=== PATIENT | female | born 1925 | race Caucasian/White ===

== ENCOUNTER 2016-05-27 11:18 | Inpatient (IN) | payer MEDICARE, OTHER ==
[2016-05-27] MEDS: Acetaminophen/oxyCODONE 325-5 MG Tab PO PRN ×2 (12:46→19:27)
[2016-05-27] MEDS ORDERED: Dextrose 5%-0.45% NaCl 500 ML IV SCH (13:15)
[2016-05-27] MEDS ORDERED: Aluminum Hydroxide/Magnesium Hydroxide/Simethicone Susp 30 ML Cup PO PRN (13:33)
[2016-05-27] MEDS ORDERED: Acetaminophen/oxyCODONE 325-5 MG Tab PO PRN (13:33)
[2016-05-27] MEDS ORDERED: Magnesium Hydroxide 400 MG/5 ML Susp 30 ML Cup PO PRN (13:33)
[2016-05-27] MEDS ORDERED: ALPRAZolam 0.25 MG Tab PO PRN (13:33)
[2016-05-27] MEDS: Pantoprazole 40 MG Vial IVPUSH SCH (13:35)
[2016-05-27] MEDS: Ketorolac 30 MG/ML SDV IVPUSH PRN (13:49)
[2016-05-27] MEDS ORDERED: Celecoxib 100 MG Cap PO SCH (14:00)
[2016-05-27] MEDS: Albuterol/Ipratropium 3.0-0.5 MG/3 ML Neb Soln NEB SCH ×2 (14:21→21:01)
[2016-05-27] MEDS: Lidocaine 5% 700 MG Patch TOP SCH (15:01)
[2016-05-27] MEDS: Acetaminophen 500 MG Tab PO SCH ×2 (15:01→22:31)
[2016-05-27] MEDS: Pregabalin 25 MG Cap PO SCH ×2 (15:02→22:31)
[2016-05-27] MEDS: Cyclobenzaprine 10 MG Tab PO PRN (15:02)
[2016-05-27] MEDS: Budesonide 0.5 MG/2 ML Neb Susp NEB SCH ×2 (16:06→21:00)
[2016-05-27] MEDS: Methylphenidate 5 MG Tab PO SCH (16:16)
[2016-05-27] MEDS: Losartan 25 MG Tab PO SCH (16:16)
[2016-05-27] MEDS: Nicotine 7 MG/24 Hr Patch TRDERM SCH (16:17)
[2016-05-27] MEDS: Levofloxacin/Dextrose 5%-Water 100 ML IV SCH (16:27)
[2016-05-27] MEDS: Levofloxacin/Dextrose 5%-Water 50 ML IV SCH (18:00)
[2016-05-27] MEDS: Calcium Citrate/Vitamin D3 315 MG-250 Unit Tab PO SCH (18:02)
[2016-05-27] MEDS: Escitalopram 10 MG Tab PO SCH (22:31)
[2016-05-27] MEDS: Dextrose 5%-0.45% NaCl 1,000 ML IV SCH (22:54)
[2016-05-28] MEDS: Albuterol/Ipratropium 3.0-0.5 MG/3 ML Neb Soln NEB SCH ×3 (05:51→20:35)
[2016-05-28] MEDS: Ketorolac 30 MG/ML SDV IVPUSH PRN ×3 (06:02→23:39)
[2016-05-28] MEDS: Pantoprazole 40 MG Vial IVPUSH SCH (06:07)
[2016-05-28] MEDS: Budesonide 0.5 MG/2 ML Neb Susp NEB SCH ×2 (07:18→20:23)
[2016-05-28 08:12] LABS: CHLORIDE,CL 109 mmol/L (98-115); SODIUM,NA 142 mmol/L (136-145)
[2016-05-28] MEDS: Lidocaine 5% 700 MG Patch TOP SCH (09:10)
[2016-05-28] MEDS: Nicotine 7 MG/24 Hr Patch TRDERM SCH (09:10)
[2016-05-28] MEDS: Dextrose 5%-0.45% NaCl 1,000 ML IV SCH ×2 (09:19→21:30)
[2016-05-28] MEDS ORDERED: Potassium Chloride 100 ML IV ONE ×3 (09:30→14:00)
[2016-05-28] MEDS: Losartan 25 MG Tab PO SCH (09:32)
[2016-05-28] MEDS: Pregabalin 25 MG Cap PO SCH ×3 (09:32→20:34)
[2016-05-28] MEDS: Calcium Citrate/Vitamin D3 315 MG-250 Unit Tab PO SCH ×2 (09:32→18:09)
[2016-05-28] MEDS: Acetaminophen 500 MG Tab PO SCH ×3 (09:33→20:25)
[2016-05-28] MEDS: Methylphenidate 5 MG Tab PO SCH (09:33)
[2016-05-28] MEDS: Acetaminophen/oxyCODONE 325-5 MG Tab PO PRN ×2 (10:10→18:04)
--- NOTE | 2016-05-28 11:42 | PN ---
05/28/2016 PATIENT NAME: DARSHAN GREGORIO CHIEF COMPLAINT: Overall does feel better, however, does still complain of some dysphagia and some difficulty swallowing. Nurses are stating she is not wanting to take her pills. BRIEF HISTORY: This 89-year-old female, who I saw at the clinic few days ago for some esophageal dysphagia and whom I set up for endoscopy; however, the patient did return and saw Annie Shepherd, another provider at the [facility] due to again some problems swallowing and also some dehydration. She has been saying that she has been having some difficulty swallowing for several months, it kind of had worsened over the past few days, to which the patient will only take a sip of water or a smaller bout of food. I did put her on twice- daily PPI, had her stop her Fosamax and her aspirin, and a soft diet. She still complained of sensation of something is getting stuck in her throat. She does have a history of COPD and GERD. We were scheduled to perform an endoscopy this morning; however, potassium is low at 3.1, needing replacement. The patient had been recently hospitalized for bacterial bronchitis and atelectasis. She did spend quite a bit of time in acute care and then swing bed therapy for ongoing pulmonary atelectasis, we thought at one time time was a possible lobular and hyperemia; however, she did improve and she had ran a course of antibiotics, and we did do aggressive pulmonary toileting and she did improve significantly and so, she was discharged to the retirement on the 20 of May with oral Levaquin. CT of the lungs does show too small left lung base pulmonary nodules. At one time, had question metastatic. She is a current smoker; however, she has been institutionalized for quite a few weeks now, so she has not smoked. She does take a nicotine patch. She did tell me last week, when she saw me, that her weight had been stable. LABORATORY DATA: Sodium 142, potassium low at 3.1, we replaced that right now. BUN 10, creatinine 0.64. Urinalysis, rare bacteria, otherwise unremarkable. Calcium low at 7.8, however, her calcium did correct with albumin yesterday at [facility]. Chest x-ray at [facility] demonstrated chronic scarring in the right perihilar region and right lung base, however, no pneumothorax, no focal consolidation, some mild atelectasis noted at the left lung base. White count at [facility] yesterday; WBC 6.7, hemoglobin 11.8, and hematocrit 36.1. PHYSICAL EXAMINATION: VITAL SIGNS: Temperature 98.2, heart rate 72, blood pressure 149/85, O2 sats 94%. She is on 2 L nasal cannula. GENERAL: The patient is alert and oriented. LUNGS: Diminished sounds bilaterally lower bases, however, clear upper bases. CV: Regular rate and rhythm. IMPRESSION AND PLAN: 1. Dysphagia, esophageal phase. The patient will need upper an endoscopy. Plan on doing that today as long as we can correct her potassium level. Right now, we will keep her n.p.o. 2. Hypokalemia. Potassium currently 3.1, currently administering IV potassium. 3. Recent acute bronchitis, atelectasis. Atelectasis still showed up on chest x-ray, however minimal. She completed her course of Levaquin and antibiotics. No infectious process noted. She did complete aggressive chest physical therapy. Continue her on her pulmonary medications. 4. Pulmonary nodularity, left lung base. She does have a pulmonary outpatient consultation placed. 5. Heart failure with preserved ejection fraction around 55 with left ventricular hypertrophy with mild diastolic dysfunction. She had an adequate mean arterial pressure right now. 6. Hypertension. She is on angiotensin-receptor ramon. Blood pressure is good. 7. History of depression. She has been on Lexapro. This seems to have improved overall. 8. History of chronic corticosteroid therapy. This was discontinued recently on last admission. 9. Chronic pain with history of spinal compression fracture T12 with chronic hip pain, fairly well controlled. 10.Gastrointestinal stress prophylaxis. She is on proton pump inhibitor therapy for gastroesophageal reflux disease. OVERALL PLAN: Today continue with n.p.o. Continue replacing potassium. Hopefully, we can get her upper endoscopy scheduled this afternoon or late evening by Dr. Dasilva. /[id number]/MODL
[2016-05-28] MEDS ORDERED: Albuterol 0.083% 2.5 MG/3 ML Neb Soln NEB ONE (16:30)
[2016-05-28] MEDS ORDERED: Midazolam 1 MG/ML 2 ML SDV ONE (16:32)
[2016-05-28] MEDS ORDERED: fentaNYL 100 MCG/2 ML SDV ONE (16:32)
[2016-05-28] MEDS ORDERED: Lactated Ringers 1,000 ML IV ONE (16:40)
[2016-05-28] MEDS ORDERED: Ketamine 500 mg/10 ML MDV IV ONE (16:44)
[2016-05-28] MEDS ORDERED: EPINEPHrine 1:10,000 1 MG/10 ML Syringe ONE (16:45)
[2016-05-28] MEDS ORDERED: Ketamine 500 mg/10 ML MDV ONE (16:48)
[2016-05-28] MEDS ORDERED: Lactated Ringers 1,000 ML ONE (16:49)
--- NOTE | 2016-05-28 17:26 | PCM.PRGIU ---
Upper GI Endoscopy Procedure Performed by:: Osvaldo Morton Date of Service:: 05/28/16 Informed consent obtained?: Yes Sedation:: Reports: IV Depth reached:: Reports: Duodenum Landmarks:: Reports: GE Junction, Gastric Folds, Pyloric Opening, Duodenal Folds , Light Source Landmarks comments:: normal landmarks - Findings Esophagus:: Reports: Other Esophagus comments:: This patient has a superficial ulceration present at the mid esophagus. there were at least 3 or 4 superficial ulcerations measuring 1-2 cm. No bleeding noted. No varicose veins noted. Small hiatal hernia noted. No evidence of GERD. Stomach comments:: slight inflammation at the pyloric opening. Hiatal hernia comments:: small hiatal hernia noted without any complication. Duodenum:: Reports: Normal - Interventions Cauterization:: Reports: None Foreign body removal:: Reports: None Polypectomy:: Reports: None Polyps (cm):: 0 Complications:: Reports: None
[2016-05-28] MEDS: Nystatin Susp 100,000 Unit/ML 5 ML UD Cup PO SCH (20:29)
[2016-05-28] MEDS: Cyclobenzaprine 10 MG Tab PO PRN (20:29)
[2016-05-28] MEDS: Escitalopram 10 MG Tab PO SCH (20:34)
[2016-05-29] MEDS: Acetaminophen/oxyCODONE 325-5 MG Tab PO PRN ×4 (00:29→22:53)
[2016-05-29] MEDS: Albuterol/Ipratropium 3.0-0.5 MG/3 ML Neb Soln NEB SCH ×3 (05:34→20:41)
[2016-05-29] MEDS: Pantoprazole 40 MG Vial IVPUSH SCH (06:12)
[2016-05-29] MEDS: Budesonide 0.5 MG/2 ML Neb Susp NEB SCH ×2 (07:13→19:55)
[2016-05-29] MEDS: Dextrose 5%-0.45% NaCl 1,000 ML IV SCH ×2 (07:42→19:52)
[2016-05-29] MEDS: Nicotine 7 MG/24 Hr Patch TRDERM SCH (08:48)
[2016-05-29] MEDS: Calcium Citrate/Vitamin D3 315 MG-250 Unit Tab PO SCH ×2 (08:49→18:31)
[2016-05-29] MEDS: Losartan 25 MG Tab PO SCH (08:51)
[2016-05-29] MEDS: Acetaminophen 500 MG Tab PO SCH ×3 (08:52→20:46)
[2016-05-29] MEDS: Methylphenidate 5 MG Tab PO SCH (08:55)
[2016-05-29] MEDS: Pregabalin 25 MG Cap PO SCH ×3 (08:55→20:45)
[2016-05-29] MEDS: Nystatin Susp 100,000 Unit/ML 5 ML UD Cup PO SCH ×4 (08:57→20:45)
[2016-05-29] MEDS: Lidocaine 5% 700 MG Patch TOP SCH (08:59)
--- NOTE | 2016-05-29 10:13 | PN ---
05/29/2016 PATIENT NAME: DARSHAN GREGORIO CHIEF COMPLAINT: She feels much better. She is eating this morning. Now, she came into the hospital with dysphagia, esophageal phase, upper endoscopy yesterday performed by Dr. Dasilva demonstrated esophageal ulceration. HISTORY: This patient who I saw at [facility] and she was subsequently seen by Annie Shepherd due to some esophageal dysphagia, she was having some problems swallowing, somewhat intermittent. She had been on aspirin. She has also been on Fosamax. She stated that her symptoms worsened over the past few days and which she currently takes sips of water, small amount of food. She does have a history of COPD and GERD. Again, yesterday's endoscopy did show ulceration. She was placed on PPI therapy. She had spent quite a long time in the hospital here with recent bacterial bronchitis and atelectasis, and also she was in swing bed. She does have quite severe COPD, however, this appears to be very stabilized. She was subsequently transferred to a long term where she is doing very well. She hopes to at one day get out of the long term. LABORATORY DATA: Sodium 142, potassium 3.9. BUN 10 and creatinine 0.64. Urinalysis was unremarkable. PHYSICAL EXAMINATION: GENERAL: The patient is alert and oriented. LUNGS: Diminished bilaterally, however clear in the upper bases. CV: Regular rate and rhythm. GI: Bowels are hypotonic. IMPRESSION AND PLAN: 1. Dysphagia, esophageal phase due to esophageal ulcerations. She is on proton pump inhibitor therapy. We will avoid all antibiotics right now. We will avoid potassium, oral. Continue stopping her Fosamax. 2. Hypokalemia. This has resolved. 3. Recent acute bronchitis with atelectasis, still demonstrated on chest x- ray, however, minimal. She has completed her course of Levaquin antibiotics. There is no infectious process. We will hold all antibiotics right now. 4. Pulmonary nodularity, left lung base. She does have a pulmonary consultation as an outpatient. She is doing much improved with this heart failure. 5. Heart failure with preserved ejection fraction. Ejection fraction approximately 55% with left ventricular hypertrophy and mild diastolic dysfunction. 6. Hypertension. She is on angiotensin-receptor ramon. Blood pressure is adequate. 7. History of depression. Lexapro max dose. She seems to be responding to this and she had good affect. OVERALL PLAN: Today, we will continue hospitalization for one more day. She most likely will be sent back tomorrow. We will see how she does with her swallowing, and she can advance her diet slowly today. /[id number]/MODL
[2016-05-29] MEDS: Levofloxacin/Dextrose 5%-Water 100 ML IV SCH (15:36)
[2016-05-29] MEDS: Levofloxacin/Dextrose 5%-Water 50 ML IV SCH (17:03)
[2016-05-29] MEDS: Cyclobenzaprine 10 MG Tab PO PRN (20:05)
[2016-05-29] MEDS: Escitalopram 10 MG Tab PO SCH (20:45)
[2016-05-30] MEDS: Albuterol/Ipratropium 3.0-0.5 MG/3 ML Neb Soln NEB SCH (05:48)
[2016-05-30] MEDS: Dextrose 5%-0.45% NaCl 1,000 ML IV SCH (05:59)
[2016-05-30] MEDS: Pantoprazole 40 MG Vial IVPUSH SCH (06:00)
[2016-05-30 06:35] VITALS: BP 130/74
[2016-05-30] MEDS: Nicotine 7 MG/24 Hr Patch TRDERM SCH (08:05)
[2016-05-30] MEDS: Losartan 25 MG Tab PO SCH (08:07)
[2016-05-30] MEDS: Lidocaine 5% 700 MG Patch TOP SCH (08:07)
[2016-05-30] MEDS: Methylphenidate 5 MG Tab PO SCH (08:08)
[2016-05-30] MEDS: Nystatin Susp 100,000 Unit/ML 5 ML UD Cup PO SCH (08:09)
[2016-05-30] MEDS: Calcium Citrate/Vitamin D3 315 MG-250 Unit Tab PO SCH (08:11)
[2016-05-30] MEDS: Acetaminophen 500 MG Tab PO SCH (08:12)
[2016-05-30] MEDS: Pregabalin 25 MG Cap PO SCH (08:14)
[2016-05-30] MEDS: Budesonide 0.5 MG/2 ML Neb Susp NEB SCH (08:27)
[2016-05-30] MEDS: Acetaminophen/oxyCODONE 325-5 MG Tab PO PRN (09:31)
--- NOTE | 2016-05-30 13:19 | DISCH ---
FINAL DIAGNOSES: 1. Esophageal ulcerations along with oropharyngeal dysphagia. 2. Hypokalemia resolved. 3. Recent acute bronchitis with atelectasis, much improved. 4. Pulmonary nodularity, left lung base. She has a pulmonary consultation as outpatient scheduled. 5. Heart failure with preserved ejection fraction approximately 55% with left ventricular hypertrophy and mild diastolic dysfunction. 6. Hypertension. She is on ARB. 7. History of depression. She is on Lexapro, she has done very well. 8. Osteoporosis. Discontinued Fosamax due to esophageal ulceration. BRIEF HISTORY: This patient whom I have seen at the [facility] for oropharyngeal dysphagia and we had scheduled her for an endoscopy. However, she did return back to the clinic and was admitted for ongoing pain and ongoing esophageal dysphagia. While in the hospital, we did perform an upper endoscopy, which showed that she had multiple small superficial ulcerations in her esophagus around mid area. No evidence of GERD with a small hiatal hernia. She was placed on Protonix while in the hospital. However, she was on PPI therapy twice a day. HOSPITAL COURSE: It went well, quite uneventful. She seemed to improve probably 75% regarding her ability to eat and swallow. She was doing quite well. We did place her on PPI. We stopped antibiotics, stopped potassium. I did stop her Fosamax prior to admission. COMPLICATIONS: No real complications, although we did have to replace her potassium. This is now corrected. VITAL SIGNS: On discharge, temperature 97.6, heart rate 76, O2 sats 94% on 2 L, blood pressure 130/74. LABS: Potassium now 3.9, sodium 142, BUN 10, creatinine 0.64, calcium 7.8. MEDICATION ADJUSTMENTS/ADDITIONS: Discontinue Fosamax. Holding all antibiotics. Placed on omeprazole b.i.d. DISPOSITION: The patient will be discharged from observation back to long-term care. She will continue with her physical therapy. She is doing quite well. She has made significant improvement of her respiratory status. Recommended soft diet. Avoid meat and chicken or any foods that bother her for the next five days. Important to continue with PPI therapy. Report any worsening esophageal pain or inability to swallow or any weight loss. She can be seen next week with [facility] provider. MEDICAL DECISION MAKIN minutes were spent on the discharge planning and process. /[id number]/MODL MTDD
== END 2016-05-30 11:42 | DRG 381 ==
LOC: KA.MS 11:50
PROVIDERS: ADMIT Nurse Practitioner Family; ATTEND Nurse Practitioner Family
PROC: 0DJ08ZZ Inspection of Upper Intestinal Tract, Via Natural or Artificial Opening Endoscopic (ICD-10-PCS; principal; 2016-05-28)
DX: K22.10 Ulcer of esophagus without bleeding (principal); J98.11 Atelectasis; I50.32 Chronic diastolic (congestive) heart failure; R13.12 Dysphagia, oropharyngeal phase; E87.6 Hypokalemia; J20.9 Acute bronchitis, unspecified; R91.1 Solitary pulmonary nodule; I10 Essential (primary) hypertension; F32.9 Major depressive disorder, single episode, unspecified; M81.0 Age-related osteoporosis without current pathological fracture; F17.200 Nicotine dependence, unspecified, uncomplicated; J44.9 Chronic obstructive pulmonary disease, unspecified; K21.9 Gastro-esophageal reflux disease without esophagitis; Z88.8 Allergy status to other drugs, medicaments and biological substances; Z79.899 Other long term (current) drug therapy; K44.9 Diaphragmatic hernia without obstruction or gangrene
CPT/HCPCS: 00740; 36415; 80048; 81001; 84132; 93005; 94640; A9270-GY; C9113; J1885; J1956; J2250; J3480; J7042; J7120; J7620-GY

== ENCOUNTER 2016-06-29 18:08 | Emergency (ER) | payer MEDICARE, OTHER ==
--- NOTE | 2016-06-29 18:52 | EDM.PDOC ---
ED HPI LOWER BACK PAIN/INJURY - General Chief Complaint: Back Pain or Injury Stated Complaint: WEAKNESS Time Seen by Provider: 06/29/16 18:23 Source of Information: Reports: Patient History Limitations: Reports: No limitations - History of Present Illness INITIAL COMMENTS - FREE TEXT/NARRATIVE: PT STATES SHE HAS CHRONIC BACK PAIN. WAS WALKING WITH PT AT HOME YESTERDAY WHILE USING WALKER AND MAY HAVE OVER DID IT. PAIN BEGAN DURING NIGHT AND PAIN MEDICINE IS NOT WORKING. DENIES FALL, REINJURY, CP, SOB, ABD PAIN, N/V/D, DYSURIA, OR BLOODY STOOL. WAS IN NURSING FACILITY UP TO 2 WEEKS AGO BUT NO LIVES HOME ALONE. Timing/Duration: Reports: Waxing/waning Location: Reports: lower Quality: Reports: Ache Severity: moderate Improves with: Reports: Medication Worsens with: Reports: Movement Context: Reports: other (excessive walking yesterday) Associated Symptoms: Reports: Denies symptoms, Difficulty walking. Denies: Chest pain, Shortness of breath - Related Data Allergies/ADRs: Allergies Allergy/AdvReac Type Severity Reaction Status Date / Time buspirone HCl [From BuSpar] Allergy Mild Other Verified 06/29/16 18:55 diclofenac sodium Allergy Other Verified 06/29/16 18:55 [From Voltaren] gabapentin Allergy Other Verified 06/29/16 18:55 tramadol Allergy Other Verified 06/29/16 18:55 Home Meds: Home Meds Escitalopram [Lexapro] 15 mg PO BEDTIME 10/21/14 [History] ALPRAZolam [Xanax] 0.25 mg PO BID PRN #30 tablet 05/20/16 [Rx] Acetaminophen [Tylenol Extra Strength] 500 mg PO TID #90 tablet 05/20/16 [Rx] Albuterol/Ipratropium [DuoNeb 3.0-0.5 MG/3 ML] 3 ml NEB Q8H #90 vial 05/20/16 [ Rx] Budesonide [Pulmicort] 0.5 mg NEB BIDRT #60 neb 05/20/16 [Rx] Calcium Carbonate/Vitamin D3 [Calcium 600 + Vit D 400 Softgl] 1 tab PO BID #60 capsule 05/20/16 [Rx] Celecoxib [CeleBREX] 200 mg PO DAILY #60 cap 05/20/16 [Rx] Cyclobenzaprine [Flexeril] 10 mg PO TID PRN #60 tablet 05/20/16 [Rx] Docusate Sodium/Sennosides [Senna Plus] 1 tab PO BID #60 tablet 05/20/16 [Rx] Losartan [Cozaar] 25 mg PO DAILY #30 tablet 05/20/16 [Rx] Mag Hydrox/Al Hydrox/Simeth [Antacid Liquid] 15 ml PO Q6H PRN #1 oral.susp 05/20 [Rx] Magnesium Hydroxide [Milk of Magnesia] 30 ml PO DAILY PRN #10 cup 05/20/16 [Rx] Methylphenidate [Ritalin] 5 mg PO DAILY #30 tablet 05/20/16 [Rx] Pregabalin [Lyrica] 50 mg PO TID #90 cap 05/20/16 [Rx] Acetaminophen/oxyCODONE [Percocet 325-5 MG] 1 tab PO Q6H PRN 05/27/16 [History] Omeprazole 20 mg PO BID@0700,1600 05/27/16 [History] Nicotine [Habitrol] 14 mg TRDERM DAILY 06/29/16 [History] Ondansetron [Ondansetron] 4 mg PO Q8H PRN 06/29/16 [History] Past Medical History - Past Health History Medical/Surgical History: Denies Medical/Surgical History HEENT History: Reports: Cataract, Hard of hearing, Impaired vision Cardiovascular History: Reports: Heart murmur, Hypertension Respiratory History: Reports: COPD, Other (see below) Other Respiratory History: smokes 3 per day Gastrointestinal History: Reports: Hemorrhoids Genitourinary History: Reports: UTI, recurrent Musculoskeletal History: Reports: Arthritis, Back pain, chronic, Fracture, Osteoarthritis, Osteoporosis Psychiatric History: Reports: Depression Endocrine/Metabolic History: Reports: Vitamin D deficiency Hematologic History: Reports: Blood transfusion(s) Oncologic (Cancer) History: Reports: Breast Dermatologic History: Reports: Other (see below) Other Dermatologic History: dark discoloration on the legs, bruises easily, on prednisone - Infectious Disease History Infectious Disease History: Reports: Chicken pox, Measles - Past Surgical History HEENT Surgical History: Reports: Cataract surgery, Tonsillectomy GI Surgical History: Reports: Colonoscopy, Other (see below) Other GI Surgeries/Procedures: hemorroidectomy Female Surgical History: Reports: Hysterectomy, Mastectomy Neurological Surgical History: Reports: C-Spine, Lumbar spine, Thoracic spine Musculoskeletal Surgical History: Reports: Hip replacement, Joint replacement, Shoulder surgery Oncologic Surgical History: Reports: Mastectomy Social & Family History - Family History Family Medical History: Noncontributory HEENT: Reports: None Cardiac: Reports: None Respiratory: Reports: None GI: Reports: None : Reports: None OBGYN: Reports: None Musculoskeletal: Reports: None Neurological: Reports: None Psychiatric: Reports: None Endocrine/Metabolic: Reports: None Hematologic: Reports: None Immunologic: Reports: None Dermatologic: Reports: None Oncologic: Reports: Other (see below) Other Oncologic Family History: / - Tobacco Use Smoking Status *Q: Former Smoker Years of Tobacco use: 30 Packs/Tins Daily: 0.5 Used Tobacco, but Quit: Yes Month Tobacco Last Used: apr 2016 Second Hand Smoke Exposure: No - Caffeine Use Caffeine Use: Reports: Coffee - Alcohol Use Days Per Week of Alcohol Use: 0 - Recreational Drug Use Recreational Drug Use: No - Living Situation & Occupation Living situation: Reports: ED ROS GENERAL - Review of Systems Review Of Systems: ROS reveals no pertinent complaints other than HPI. Constitutional: Reports: weakness HEENT: Reports: No symptoms Respiratory: Reports: No Symptoms Cardiovascular: Reports: No symptoms Endocrine: Reports: no symptoms GI/Abdominal: Reports: No symptoms : Reports: no symptoms Musculoskeletal: Reports: back pain Skin: Reports: no symptoms Neurological: Reports: No Symptoms Psychiatric: Reports: No symptoms Hematologic/Lymphatic: Reports: no symptoms Immunologic: Reports: no symptoms ED EXAM,LOWER BACK PAIN/INJURY - Physical Exam Exam: See Below Exam Limited By: No limitations General Appearance: alert, WD/WN, no apparent distress Throat/Mouth: Normal inspection, Normal oropharynx, No airway compromise Head: atraumatic, normocephalic Neck: normal inspection, supple, non-tender Respiratory/Chest: no respiratory distress, lungs clear, normal breath sounds, no accessory muscle use, chest non-tender Cardiovascular: regular rate, rhythm, diastolic murmur GI/Abdominal: normal bowel sounds, soft, non tender, no organomegaly, no distention, no abnormal bruit, no mass Back Exam: decreased range of motion, paraspinal tenderness. No: CVA tenderness (L), CVA tenderness (R), vertebral tenderness Extremities: normal inspection, non-tender, no pedal edema Neurological: alert, normal dorsiflexion, normal plantar flexion, oriented x 3, straight leg raise (L) (WITHOUT PAIN), straight leg raise (R) (WITHOUT PAIN). No: saddle anesthesia Psychiatric: anxious Skin Exam: Warm, Dry, Intact, Normal color, No rash Lymphatic: no adenopathy Course - Orders/Labs/Meds Orders: Active Orders 24 hr Category Date Time Status URINALYSIS W/MICROSCOPIC [UA W/MICROSCOPIC] [URIN] Stat Lab 06/29/16 18:46 Uncollected - Re-Assessments/Exams Free Text/Narrative Re-Assessment/Exam: 06/29/16 19:56 PT AFEBRILE, NONTOXIC APPEARING, VSS, RESTING COMFORTABLY. WILL D/C AND F/U WITH [facility] SCHEDULED ON FRIDAY Departure - Departure Time of Disposition: 19:59 Disposition: Home, Self-Care 01 Condition: good Clinical Impression: Chronic low back pain Qualifiers: Back pain laterality: unspecified Sciatica presence: with sciatica Sciatica laterality: bilateral sciatica Qualified Code(s): M54.41 - Lumbago with sciatica , right side; M54.42 - Lumbago with sciatica, left side; G89.29 - Other chronic pain Instructions: Back Pain, Adult, [id number], Chronic Back Pain, Pain Medicine Instructions, [id number] Additional Instructions: FOLLOW UP AT [facility] ON FRIDAY SCHEDULED - My Orders Last 24 Hours: My Active Orders 06/29/16 18:46 URINALYSIS W/MICROSCOPIC [UA W/MICROSCOPIC] [URIN] Stat - Assessment/Plan Last 24 Hours: My Active Orders 06/29/16 18:46 URINALYSIS W/MICROSCOPIC [UA W/MICROSCOPIC] [URIN] Stat Assessment:: CHRONIC BACK PAIN Plan: APPOINTMENT ON FRIDAY AT [facility]
[2016-06-29 18:53] VITALS: BP 118/77
[2016-06-29] MEDS ORDERED: Ketorolac 30 MG/ML SDV IM ONE (19:43)
== END 2016-06-29 20:10 | disposition home or self-care (01) ==
LOC: KA.ED 18:08
DX: M54.41 Lumbago with sciatica, right side (principal); M54.42 Lumbago with sciatica, left side; G89.29 Other chronic pain; R01.1 Cardiac murmur, unspecified; I10 Essential (primary) hypertension; J44.9 Chronic obstructive pulmonary disease, unspecified; Z87.440 Personal history of urinary (tract) infections; M19.90 Unspecified osteoarthritis, unspecified site; F32.9 Major depressive disorder, single episode, unspecified; Z98.49 Cataract extraction status, unspecified eye; Z98.890 Other specified postprocedural states; Z90.710 Acquired absence of both cervix and uterus; Z87.891 Personal history of nicotine dependence; Z79.899 Other long term (current) drug therapy; Z88.5 Allergy status to narcotic agent; Z88.8 Allergy status to other drugs, medicaments and biological substances
CPT/HCPCS: 81001; 96372; 99283; J1885

== ENCOUNTER 2016-07-01 14:25 | Inpatient (IN) | payer MEDICARE, OTHER ==
[2016-07-01] MEDS ORDERED: Sodium Chloride 0.9% 5 ML Syringe FLUSH PRN (15:01)
[2016-07-01] MEDS ORDERED: Sodium Chloride 0.9% 1,000 ML IV ONE (15:01)
[2016-07-01 15:21] LABS: CHLORIDE,CL 106 mmol/L (98-115); SODIUM,NA 140 mmol/L (136-145)
--- NOTE | 2016-07-01 16:11 | EDM.PDOC ---
ED HPI GENERAL MEDICAL PROBLEM - General Chief Complaint: General Time Seen by Provider: 07/01/16 14:58 Source of Information: Reports: Patient, EMS History Limitations: Reports: No limitations - History of Present Illness INITIAL COMMENTS - FREE TEXT/NARRATIVE: PT STATES SHE HAS FELT WEAK OVER PAST FEW DAYS AND FELL WHILE IN KITCHEN. LANDED ON BUTTOCKS AND BACK HURTS. SEEN HERE IN ER ON 06/29/16 FOR BACK PAIN. TAKES EXCESSIVE PERCOCET AND FLEXERIL. DENIES HEAD INJURY, FEVER, N/V/D, CP, OR SOB. Onset: today Duration: Day(s): Location: Reports: back Quality: Reports: Ache Severity: mild Improves with: Reports: None Worsens with: Reports: Movement Associated Symptoms: Reports: weakness. Denies: chest pain, cough, fever/chills , nausea/vomiting, shortness of breath Treatments [employer]: Reports: Oxygen, Splint(s) Lower Back Pain Score (Numeric/FACES): 7 - Related Data Allergies Allergy/AdvReac Type Severity Reaction Status Date / Time buspirone HCl [From BuSpar] Allergy Mild Other Verified 07/01/16 15:03 diclofenac sodium Allergy Other Verified 07/01/16 15:03 [From Voltaren] gabapentin Allergy Other Verified 07/01/16 15:03 tramadol Allergy Other Verified 07/01/16 15:03 Home Meds: Home Meds ALPRAZolam [Xanax] 0.25 mg PO BID PRN #30 tablet 05/20/16 [Rx] Budesonide [Pulmicort] 0.5 mg NEB BIDRT #60 neb 05/20/16 [Rx] Celecoxib [CeleBREX] 200 mg PO DAILY #60 cap 05/20/16 [Rx] Cyclobenzaprine [Flexeril] 10 mg PO TID PRN #60 tablet 05/20/16 [Rx] Docusate Sodium/Sennosides [Senna Plus] 1 tab PO BID #60 tablet 05/20/16 [Rx] Losartan [Cozaar] 25 mg PO DAILY #30 tablet 05/20/16 [Rx] Mag Hydrox/Al Hydrox/Simeth [Antacid Liquid] 15 ml PO Q6H PRN #1 oral.susp 05/20 [Rx] Magnesium Hydroxide [Milk of Magnesia] 30 ml PO DAILY PRN #10 cup 05/20/16 [Rx] Methylphenidate [Ritalin] 5 mg PO DAILY #30 tablet 05/20/16 [Rx] Pregabalin [Lyrica] 50 mg PO TID #90 cap 05/20/16 [Rx] Acetaminophen/oxyCODONE [Percocet 325-5 MG] 1 tab PO Q6H PRN 05/27/16 [History] Omeprazole 20 mg PO DAILY 05/27/16 [History] Nicotine [Habitrol] 14 mg TRDERM DAILY 06/29/16 [History] Acetaminophen [Tylenol Extra Strength] 500 mg PO TID PRN 07/01/16 [History] Albuterol/Ipratropium [DuoNeb 3.0-0.5 MG/3 ML] 3 ml NEB Q8H PRN 07/01/16 [ History] Calcium Carb/Vitamin D3/Vit K1 [Viactiv Soft Chew] 1 tab PO BID 07/01/16 [ History] Escitalopram [Lexapro] 20 mg PO BEDTIME 07/01/16 [History] Past Medical History - Past Health History Medical/Surgical History: Denies Medical/Surgical History HEENT History: Reports: Cataract, Hard of hearing, Impaired vision Cardiovascular History: Reports: Heart murmur, Hypertension Respiratory History: Reports: COPD Other Respiratory History: smokes 3 per day Gastrointestinal History: Reports: Hemorrhoids Genitourinary History: Reports: UTI, recurrent Musculoskeletal History: Reports: Arthritis, Back pain, chronic, Fracture, Osteoarthritis, Osteoporosis Neurological History: Reports: None Psychiatric History: Reports: Anxiety, Depression Endocrine/Metabolic History: Reports: Vitamin D deficiency Hematologic History: Reports: Blood transfusion(s) Oncologic (Cancer) History: Reports: Breast Dermatologic History: Reports: Other (see below) Other Dermatologic History: dark discoloration on the legs, bruises easily - Infectious Disease History Infectious Disease History: Reports: Chicken pox, Measles, Mumps - Past Surgical History Head Surgeries/Procedures: Reports: None HEENT Surgical History: Reports: Cataract surgery, Tonsillectomy Cardiovascular Surgical History: Reports: None Respiratory Surgical History: Reports: None GI Surgical History: Reports: Colonoscopy, Other (see below) Other GI Surgeries/Procedures: hemorroidectomy Female Surgical History: Reports: Hysterectomy, Mastectomy Endocrine Surgical History: Reports: None Neurological Surgical History: Reports: C-Spine, Lumbar spine, Thoracic spine Musculoskeletal Surgical History: Reports: Hip replacement, Joint replacement, Shoulder surgery Oncologic Surgical History: Reports: Mastectomy Social & Family History - Family History Family Medical History: Noncontributory HEENT: Reports: None Cardiac: Reports: None Respiratory: Reports: None GI: Reports: None : Reports: None OBGYN: Reports: None Musculoskeletal: Reports: None Neurological: Reports: None Psychiatric: Reports: None Endocrine/Metabolic: Reports: None Hematologic: Reports: None Immunologic: Reports: None Dermatologic: Reports: None Oncologic: Reports: Other (see below) Other Oncologic Family History: / - Tobacco Use Smoking Status *Q: Former Smoker Years of Tobacco use: 30 Packs/Tins Daily: 0.5 Used Tobacco, but Quit: Yes Month Tobacco Last Used: apr 2016 Second Hand Smoke Exposure: No - Caffeine Use Caffeine Use: Reports: Coffee - Alcohol Use Days Per Week of Alcohol Use: 0 - Recreational Drug Use Recreational Drug Use: No - Living Situation & Occupation Living situation: Reports: ED ROS GENERAL - Review of Systems Review Of Systems: ROS reveals no pertinent complaints other than HPI. Constitutional: Reports: weakness HEENT: Reports: No symptoms Respiratory: Reports: No Symptoms Cardiovascular: Reports: No symptoms Endocrine: Reports: no symptoms GI/Abdominal: Reports: No symptoms : Reports: no symptoms Musculoskeletal: Reports: back pain Skin: Reports: no symptoms Neurological: Reports: Dizziness Psychiatric: Reports: No symptoms Hematologic/Lymphatic: Reports: no symptoms Immunologic: Reports: no symptoms ED EXAM, GENERAL - Physical Exam Exam: See Below Exam Limited By: No limitations General Appearance: alert, WD/WN, no apparent distress Eye Exam: bilateral eye: normal inspection Ears: normal external exam, normal canal Nose: normal inspection, normal mucosa, no blood Throat/Mouth: Normal inspection, Normal oropharynx, No airway compromise Head: atraumatic, normocephalic Neck: normal inspection, supple, non-tender, full range of motion Respiratory/Chest: no respiratory distress, lungs clear, normal breath sounds, no accessory muscle use, chest non-tender Cardiovascular: regular rate, rhythm, no murmur GI/Abdominal: normal bowel sounds, soft, non tender, no mass Back Exam: paraspinal tenderness (LUMBAR / NO ECCHYMOSIS, ERYTHEMA, OR EDEMA NOTED). No: CVA tenderness (L), CVA tenderness (R) Neurological: alert, oriented, normal cognition Psychiatric: normal affect, normal mood Skin Exam: Warm, Dry, Intact, Normal color, No rash Lymphatic: no adenopathy Course - Vital Signs Last Recorded V/S: Last Vital Signs Temp 97.5 F 07/01/16 14:53 Pulse 72 07/01/16 14:53 Resp 17 07/01/16 14:53 BP 84/36 L 07/01/16 14:53 Pulse Ox 95 07/01/16 14:53 - Orders/Labs/Meds Orders: Active Orders 24 hr Category Date Time Status Peripheral IV Care [RC] . DIRECTED Care 07/01/16 15:01 Ordered Lumbar Spine 2 or 3V [CR] Stat Exams 07/01/16 14:59 Ordered UA W/MICROSCOPIC [URIN] Stat Lab 07/01/16 14:59 Uncollected Sodium Chloride 0.9% [Syrex Flush] Med 07/01/16 15:01 Ordered 5 ml FLUSH Q8HR PRN Peripheral IV Insertion Adult [OM.PC] Routine Oth 07/01/16 15:01 Ordered Medication Orders Sodium Chloride (Syrex Flush) 5 ml FLUSH Q8HR PRN PRN Reason: Keep Vein Open Labs: Laboratory Tests 07/01/16 07/01/16 Range/Units 14:45 14:45 WBC 6.4 (5.0-10.0) 10^3/uL RBC 4.34 (3.80-5.50) 10^6/uL Hgb 11.9 L (12.0-16.0) g/dL Hct 36.7 L (37.0-47.0) % MCV 84.6 (82.0-92.0) fL MCH 27.5 (27.0-31.0) pg MCHC 32.5 (32.0-36.0) g/dL RDW 17.8 H (11.5-14.5) % Plt Count 199 (150-300) 10^3/uL MPV 8.3 (7.4-10.4) fL Neut % (Auto) 61.5 (50.0-70.0) % Lymph % (Auto) 23.5 (20.0-40.0) % [place] % (Auto) 10.0 H (2.0-8.0) % Eos % (Auto) 3.6 H (1.0-3.0) % Baso % (Auto) 1.4 H (0.0-1.0) % Neut # (Auto) 4.0 (2.5-7.0) 10^3/uL Lymph # (Auto) 1.5 (1.0-4.0) 10^3/uL [place] # (Auto) 0.6 (0.1-0.8) 10^3/uL Eos # (Auto) 0.2 (0.1-0.3) 10^3/uL Baso # (Auto) 0.1 (0.0-0.1) 10^3/uL Sodium 140 (136-145) mmol/L Potassium 4.2 (3.3-5.3) mmol/L Chloride 106 (98-115) mmol/L Carbon Dioxide 28.9 (21.0-32.0) mmol/L BUN 32 H (6-25) mg/dL Creatinine 1.50 H (0.51-1.17) mg/dL Est Cr Clr Drug Dosing TNP Estimated GFR (MDRD) 33 mL/min Glucose 96 (70-110) mg/dL Calcium 8.8 (8.7-10.3) mg/dL Total Bilirubin 0.5 (0.2-1.0) mg/dL AST 27 (15-37) U/L ALT 12 (12-78) U/L Alkaline Phosphatase 59 (46-116) IU/L Total Protein 6.0 L (6.4-8.2) g/dL Albumin 2.83 L (3.00-4.80) g/dL Meds: Medications Generic Name Dose Route Start Last Admin Trade Name Freq PRN Reason Stop Dose Admin Sodium Chloride 5 ml 07/01/16 15:01 Syrex Flush FLUSH Q8HR PRN Keep Vein Open Discontinued Medications Generic Name Dose Route Start Last Admin Trade Name Freq PRN Reason Stop Dose Admin Sodium Chloride 1,000 mls @ 999 mls/hr 07/01/16 15:01 07/01/16 15:00 Normal Saline IV 07/01/16 16:01 999 mls/hr .BOLUS ONE Administration - Re-Assessments/Exams Free Text/Narrative Re-Assessment/Exam: 07/01/16 16:17 PT AFEBRILE, NONTOXIC APPEARING, VSS. DISCUSSED CASE WITH DR COLLINS. WILL ADMIT INPATIENT Departure - Departure Time of Disposition: 16:18 Disposition: Admitted As Inpatient 67 Condition: fair Clinical Impression: Chronic bilateral low back pain with left-sided sciatica, Weakness Compression fx, thoracic spine Qualifiers: Encounter type: subsequent encounter Fracture healing: with routine healing Qualified Code(s): S22.000D - Wedge compression fracture of unspecified thoracic vertebra, subsequent encounter for fracture with routine healing Forms: ED Department Discharge - My Orders Last 24 Hours: My Active Orders 07/01/16 14:59 Lumbar Spine 2 or 3V [CR] Stat UA W/MICROSCOPIC [URIN] Stat 07/01/16 15:01 Peripheral IV Care [RC] . DIRECTED Sodium Chloride 0.9% [Syrex Flush] 5 ml FLUSH Q8HR PRN Peripheral IV Insertion Adult [OM.PC] Routine - Assessment/Plan Last 24 Hours: My Active Orders 07/01/16 14:59 Lumbar Spine 2 or 3V [CR] Stat UA W/MICROSCOPIC [URIN] Stat 07/01/16 15:01 Peripheral IV Care [RC] . DIRECTED Sodium Chloride 0.9% [Syrex Flush] 5 ml FLUSH Q8HR PRN Peripheral IV Insertion Adult [OM.PC] Routine Assessment:: WEAKNESS Plan: ADMIT INPATIENT FOR DR COLLINS
[2016-07-01] MEDS ORDERED: Acetaminophen 500 MG Tab PO PRN (17:44)
[2016-07-01] MEDS ORDERED: Aluminum Hydroxide/Magnesium Hydroxide/Simethicone Susp 30 ML Cup PO PRN (17:44)
[2016-07-01] MEDS ORDERED: Magnesium Hydroxide 400 MG/5 ML Susp 30 ML Cup PO PRN (17:44)
[2016-07-01] MEDS ORDERED: Albuterol/Ipratropium 3.0-0.5 MG/3 ML Neb Soln NEB PRN (17:44)
[2016-07-01] MEDS: Acetaminophen/oxyCODONE 325-5 MG Tab PO PRN (20:00)
[2016-07-01] MEDS: Budesonide 0.5 MG/2 ML Neb Susp NEB SCH (20:01)
[2016-07-01] MEDS: Calcium Citrate/Vitamin D3 315 MG-250 Unit Tab PO SCH (20:03)
[2016-07-01] MEDS: Pregabalin 25 MG Cap PO SCH (20:06)
[2016-07-01] MEDS: Escitalopram 10 MG Tab PO SCH (20:06)
[2016-07-02] MEDS: Omeprazole 20 MG Cap.CR PO SCH (06:08)
[2016-07-02] MEDS: Acetaminophen/oxyCODONE 325-5 MG Tab PO PRN ×3 (06:08→22:13)
[2016-07-02] MEDS: Pregabalin 25 MG Cap PO SCH ×3 (08:06→20:06)
[2016-07-02] MEDS: Celecoxib 100 MG Cap PO SCH (08:06)
[2016-07-02] MEDS: Calcium Citrate/Vitamin D3 315 MG-250 Unit Tab PO SCH ×2 (08:07→20:04)
[2016-07-02] MEDS: Methylphenidate 5 MG Tab PO SCH (08:07)
[2016-07-02] MEDS: Nicotine 14 MG/24 Hr Patch TRDERM SCH (08:10)
--- NOTE | 2016-07-02 08:11 | HP ---
07/01/2016PATIENT NAME: DARSHAN GREGORIO HISTORY OF PRESENT ILLNESS: This is a very pleasant 89-year-old patient, who presents to the emergency room because of feeling weak over the last few days. She fell at the kitchen. She landed on her buttocks and her back hurts. She was taking too much excessive Percocet and Flexeril. Denies having any head injury or fever, nausea, vomiting, diarrhea, or shortness of breath. The patient has been taking narcotics for her chronic low back pain. PAST MEDICAL HISTORY: Past history is positive for cataracts, decreased hearing, impaired vision, medical history includes heart murmur and hypertension. Lung history includes COPD. She smokes three cigarettes a day. Gastrointestinal history shows hemorrhoids. system shows that she has recurrent UTIs. Musculoskeletal history showed she has arthritis, back pain, fracture, osteoarthritis, and osteoporosis. She has history of depression, vitamin D deficiency. She reports breast cancer in the past. She has had some bruises of the legs. PAST SURGICAL HISTORY: Cataract surgery, bilaterally tonsillectomy. GI history includes colonoscopy. She has also had a hemorrhoidectomy. history also shows hysterectomy and mastectomy. Possible neurological surgical history includes C-spine, lumbar spine, thoracic spine surgery. She also had a hip replacement and shoulder surgery. She also reports mastectomy. REVIEW OF SYSTEMS: HEAD AND NECK: No complaints except for some slurring of speech. ENT: No complaints. HEART AND LUNGS: No complaints. ABDOMEN: No complaints. EXTREMITIES: No complaints. [employer]MENT: No complaints. MUSCULOSKELETAL: See present history and low back pain. PSYCHIATRIC: Fairly alert. Does have some slurred speech. HEMATOLOGICAL: No complaints. DERMATOLOGICAL: Some bruises of the legs. Tobacco use. The patient is smoking for 30 years. She smokes currently about a half pack a day, sometimes less. PHYSICAL EXAMINATION: GENERAL: Reveals a very pleasant, elderly patient in no immediate distress. She is alert and well oriented to space, time, and person. She was visiting with her two friends in the room. VITAL SIGNS: Reviewed. HEAD: Negative. ENT: Negative. HEART AND LUNGS: Stable. ABDOMEN: Soft. BACK: Reveals some tenderness. Moderate amount of paravertebral muscle spasm. Flexion, extension, lateral flexion movements are tender. Reflexes are normal. EXTREMITIES: Reveals some bruising of the legs. NEUROLOGIC: Intact. Last vital signs: Temperature 97.5, pulse 72, respirations 17, blood pressure initially was 84/36, now it is 110/70, pulse oxygenation is 95%. Hemoglobin is 11.9, which slightly low; white count 6.4; platelet count was 199, normal. Creatinine is 1.5, BUN is 32, otherwise is negative. Total protein slightly low at 6.0, normal 6.4. Albumin 2.83, normal 3. The thoracic x-rays are positive for a questionable wedge compression fracture, exact bone is not known, but awaiting the radiological report. PLAN: 1. Admit to the hospital for further pain control and further evaluation. 2. History of fall. We will have to evaluate this. 3. The patient most likely took too much narcotic medication associated and muscle relaxant including Flexeril. Plan on discharge will be to caution her against excessive use of medications. 4. Pain control. Please see admit note. /[id number]/MODL
[2016-07-02] MEDS: Budesonide 0.5 MG/2 ML Neb Susp NEB SCH ×2 (08:44→19:53)
--- NOTE | 2016-07-02 12:02 | PN ---
07/02/2016 PATIENT NAME: DARSHAN GREGORIO CHIEF COMPLAINT: This morning, feels much better. When pressed, she will say she does have lower lumbar pain, however, much milder. HISTORY: This 89-year-old female, who recently spent quite a bit of time in acute care and then subsequent swing bed care for more pulmonary, respiratory atelectasis and pneumonia, was eventually released back to home. She stated that she became quite weak over the past few days and she fell in her kitchen landing on her buttocks and hurting her back. She does have a history of lumbago and chronic back pain. She is on Flexeril and Percocet. On speaking with her, most likely, she stated she took an extra Flexeril, possibly even an extra Percocet, became weak, and then fell, however, no other injury at that time. The patient was recently discharged from the hospital on 05/30/2016. Final diagnosiswas esophageal ulcerations along with oropharyngeal dysphagia, bronchitis with atelectasis, which had much improved. She did have a pulmonary nodularity in her left lung base, heart failure with preserved ejection fraction around 55%, hypertension, history of depression, osteoporosis, which we discontinued her Fosamax due to esophageal ulceration. She does have COPD. She does smoke three cigarettes a day. She has been counseled on this extensively. Musculoskeletal history, does have a history of lumbago with arthritis, fractures with a possible wedge fracture in her thoracic vertebrae, that report is still pending. Once again, osteoarthritis with osteoporosis, depression, and vitamin D deficiency. PHYSICAL EXAMINATION: VITAL SIGNS: Temperature 97.6, heart rate 76, O2 sats 94%; this is on 2 L nasal cannula. GENERAL: She is alert and oriented. Constitutionally, she has just some mild stiffness; however, she was able to get out of bed. I did stand her up. MUSCULOSKELETAL: She has got good upper extremity strength and good motor function. Her legs are slightly weak in her bilateral lower extremities; however, she was quite steady in her gait. She had no edema. She did have some paraspinal tenderness slightly in her thorax, more in her midline lumbar, axial in nature. LUNGS: Decreased in the lower bases, however, clear to auscultation. CV: Regular rate and rhythm and no murmur noted. REVIEW OF SYSTEMS: She denies any saddle anesthesia or any radiculopathy in her lower extremities. LABORATORY DATA: White count normal, hemoglobin 11.5, hematocrit 34.1. Potassium 3.9, sodium normal. BUN and creatinine normal. Calcium 7.8. Uric acid 3.8. Rare bacteria in her urine. IMPRESSION AND PLAN: 1. Histories of fall at home, likely medication mixup. Pharmacy is working with the patient and she will notify the home health nurse regarding proper medications setup. 2. High-risk medication. Flexeril as listed on the Beers criteria. However, the patient may get more benefit than risk at this time as long as she takes proper dosage. 3. Lower lumbar pain with possible wedge fracture, thoracic; report pending. However, continue with Tylenol Extra Strength. We will change that to scheduled. We will limit her Percocet at this time. Continue with Celebrex. I do not anticipate the patient being in the hospital more than 24 more hours. Anticipate discharge tomorrow. The patient will need quite a bit of education regarding her medications. We will see what the report of her thoracic lumbar says today. /[id number]/MODL
[2016-07-02] MEDS: Escitalopram 10 MG Tab PO SCH (20:04)
[2016-07-03] MEDS: Acetaminophen/oxyCODONE 325-5 MG Tab PO PRN ×2 (05:24→11:24)
[2016-07-03 06:26] VITALS: BP 148/79
[2016-07-03] MEDS: Omeprazole 20 MG Cap.CR PO SCH (06:36)
[2016-07-03] MEDS: Nicotine 14 MG/24 Hr Patch TRDERM SCH (08:32)
[2016-07-03] MEDS: Celecoxib 100 MG Cap PO SCH (08:32)
[2016-07-03] MEDS: Calcium Citrate/Vitamin D3 315 MG-250 Unit Tab PO SCH (08:32)
[2016-07-03] MEDS: Pregabalin 25 MG Cap PO SCH (08:32)
[2016-07-03] MEDS: Methylphenidate 5 MG Tab PO SCH (08:32)
[2016-07-03] MEDS: Budesonide 0.5 MG/2 ML Neb Susp NEB SCH (08:38)
--- NOTE | 2016-07-04 08:56 | DISCH ---
FINAL DIAGNOSES: 1. Fall due to medication incompetency and overdose. 2. High-risk medication of Flexeril listed on Beers criteria, stable, but moderate compression deformity, T12, no hardware malalignment, high-risk medication, Percocet; this was removed. BRIEF HISTORY: This elderly lady, who was recently discharged, spent quite a bit of time in acute care and subsequent swing bed care for more of pulmonary nature with atelectasis or pneumonia, and she was eventually released back to home. After she was discharged from the hospital, she did go into long-term care; however, she was released back to home. She stated that she became quite weak over the past few days, fell in her kitchen landing on her buttocks. She states she hurt her back; however, she did not hit her head. She does have a history of low back pain with chronic back pain. She is on high-risk medications of Percocet and Flexeril. The patient did admit to overdose of Flexeril and possibly Percocet, difficult to ascertain her exact recollection of events, but she will admit to not taking her medications properly in that she became weak and she fell. The patient was recently discharged from hospital on May 30, 2016. Her final diagnoses at that time were esophageal ulcerations along with oropharyngeal dysphagia, bronchitis with atelectasis which she had improved quite a bit. She did have a pulmonary nodularity in her left lung. She had heart failure with preserved ejection fraction of around 55%, hypertension, history of depression, and osteoporosis. We did discontinue off her Fosamax due to esophageal ulcerations. She also has COPD. She does admit to continuing smoking about 4 cigarettes per day. She has been counseled on this extensively. She also has vitamin D deficiency. HOSPITAL COURSE: Quite uneventful. She did not have any pain on discharge. She was given Tylenol Arthritis along with Percocet, the Tylenol Arthritis did relieve her pain. She never became hemodynamically unstable. Her vital signs were normal on discharge. She had a normal white count, hemoglobin 11.5, hematocrit 34.1, and potassium 3.9. Sodium was normal. BUN and creatinine were normal. Calcium 7.8. Uric acid level was normal at 3.8. She did have some rare bacteria in her urine. REVIEW OF SYSTEMS: No saddle anesthesia. No radiculopathy. No weakness. No bladder or bowel dysfunction. PHYSICAL EXAMINATION: MUSCULOSKELETAL: She did have some mild tenderness in her mid thoracic area and also in her lower lumbar, no spasm. Negative Ronal's. No dorsiflexion weakness. Good patellar tendon reflex. LABORATORY DATA: A urinalysis was done, few bacteria, did not have any reactions to medications and/or foods. DIAGNOSTICS: Lumbar spine does show no acute fracture or any hardware abnormality, did show a moderate compression deformity of T12, stable since previous films, October 2014. No new fracture identified. The patient did see Kit Planner, and we did have a consultation with the pharmacy. She will be set up for ongoing medication review through the [facility] nurse. DISPOSITION: The patient will be discharged from the today I did face-to- face encounter for home health services as the patient will need residential health to help with held teaching for medication management and she did have a mixup in her medication resulting in overdose resulting in hospital stay. She was counseled on her medication. Consultation was placed in for Home Health for medication review. She was discontinued off her Percocet, high-risk medication, and there was no indication for her chronic opioid therapy and her medical condition. Risk versus benefit from high-risk medications listed on the Beers criteria regarding Flexeril; however, she most likely could receive some more benefit than risk, we will have to monitor for any ongoing instability, and she was changed to Tylenol Arthritis, that will be scheduled. She will follow up in a couple days with Kaylee Dow in the [facility]. MEDICAL DECISION MAKIN minutes was spent on discharge planning and process. /[id number]/MODL MTDD
== END 2016-07-03 12:45 | disposition home or self-care (01) | DRG 552 ==
LOC: KA.ED 14:25 → KA.MS 16:20
PROVIDERS: ADMIT Physician Assistant Surgical; ATTEND Family Medicine
DX: M54.42 Lumbago with sciatica, left side (principal); M54.5 Low back pain; W18.39XA Other fall on same level, initial encounter; Y92.9 Unspecified place or not applicable; R53.1 Weakness; Y92.019 Unspecified place in single-family (private) house as the place of occurrence of the external cause; S22.000D Wedge compression fracture of unspecified thoracic vertebra, subsequent encounter for fracture with routine healing; F41.8 Other specified anxiety disorders; I50.9 Heart failure, unspecified; I10 Essential (primary) hypertension; F32.9 Major depressive disorder, single episode, unspecified; Z88.8 Allergy status to other drugs, medicaments and biological substances; Z87.891 Personal history of nicotine dependence; M81.0 Age-related osteoporosis without current pathological fracture; J44.9 Chronic obstructive pulmonary disease, unspecified; E55.9 Vitamin D deficiency, unspecified; R91.1 Solitary pulmonary nodule; R01.1 Cardiac murmur, unspecified; M19.90 Unspecified osteoarthritis, unspecified site; F17.210 Nicotine dependence, cigarettes, uncomplicated; Z91.14 Patient's other noncompliance with medication regimen; Z79.899 Other long term (current) drug therapy; Z85.3 Personal history of malignant neoplasm of breast
CPT/HCPCS: 72100; 80053; 85025; 96360; 99285; J7030; 36415; 81001; 94640; A9270-GY